=== PATIENT | male | born 1945 | race Caucasian/White ===

== ENCOUNTER 2018-09-11 06:17 | Day surgery (SDC) | payer MEDICARE ==
[2018-09-05 15:55] VITALS: BP 155/86
--- NOTE | 2018-09-05 16:18 | NUR ---
CALLED DR. RAJPUT TO REPORT EKG FINDING AND PT HAVING BLADDER STIMULATOR DEVICE PLACED. PER PATIENT HE WAS TOLD BY CORRINE PARISI THAT SPIKES ON EKG WERE DUE TO BLADDER STIMULATOR. PER DR. RAJPUT OK TO PROCEED.
--- NOTE | 2018-09-10 11:00 | NUR ---
PER DR. STEPHENS OK FOR PT TO CONTINUE TAKING HIS ELIQUIS, SEE MD HISTORY AND PHYSICAL. PT WAS TOLD ON DAY OF INTERVIEW
[2018-09-11] VITALS (11 sets, daily range): BP systolic 105–133; BP diastolic 60–81
[~2018-09-11] VITALS: Ht 180.3 cm; Wt 126.5 kg
[~2018-09-11 06:17] MED LIST: ALLO300T2 PO; AMLO5TAB9 PO; APIX5TAB PO; ATOR40TA71 PO; LACTATED RINGERS 1000ML 1,000 ML IV SCH; ROPI5TAB4 PO; VALS320T16 PO
[2018-09-11] MEDS ORDERED: PROPOFOL 10 MG/ML 20ML VIAL IV ONE (07:17)
[2018-09-11] MEDS ORDERED: FENTANYL CITRATE PF 50 MCG/1 ML 2ML VIAL ONE (07:17)
[2018-09-11] MEDS ORDERED: MIDAZOLAM HCL 1 MG/ML 2ML VIAL ONE (07:17)
[2018-09-11] MEDS ORDERED: LIDOCAINE HCL-MPF 1% 5ML AMP IJ ONE (07:17)
--- NOTE | 2018-09-11 07:25 | NUR ---
WHEEZING Sahil Lakhani CRNA notified of wheezing all lobes ,resp treatment ordered Addendum: 09/11/18 at 0744 by ROJELIO BALTAZAR RN RN Amended: Links added.
[2018-09-11] MEDS ORDERED: IPRATROPIUM/ALBUTEROL SULFATE 3 ML SOLUTION IH ONE (07:28)
[2018-09-11] MEDS ORDERED: EPHEDRINE SULFATE 50 MG/ML AMPULE ONE (08:01)
== END 2018-09-11 09:30 | disposition home or self-care (01) ==
LOC: DAH 06:17
PROVIDERS: ATTEND Orthopaedic Surgery
DX: T84.028A Dislocation of other internal joint prosthesis, initial encounter (principal); M24.411 Recurrent dislocation, right shoulder; Z88.0 Allergy status to penicillin
CPT/HCPCS: 23655; 73030; 93005; 94640; A4565; A4606; J2250; J2704; J3010; J3490 ×2; J7120

== ENCOUNTER 2018-11-26 11:00 | Inpatient (IN) | payer MEDICARE ==
[~2018-11-26] VITALS: Ht 179.1 cm; Wt 125.4 kg
[~2018-11-26 11:00] MED LIST changes: -AMLO5TAB9 PO; -LACTATED RINGERS 1000ML 1,000 ML IV SCH
[2018-11-26 12:29] LABS: EOSINOPHILS % (AUTO) 4.2 % (0.0-8.0); HEMATOCRIT 39.1 % (42-54); MEAN CORPUSCULAR HEMOGLOBIN 30.4 pg (27.0-33.0); MEAN CORPUSCULAR HGB CONC 33.1 g/dL (32.0-36.0); MONOCYTES % (AUTO) 7.8 % (3.0-13.0); PLATELET COUNT (AUTO) 221 K/uL (130-400); RED BLOOD CELL COUNT(AUTO) 4.25 MIL/uL (4.50-6.20); RED CELL DISTRIBUTION WIDTH 13.8 % (11.0-15.5); WHITE BLOOD COUNT (AUTO) 5.3 K/uL (4.8-10.8)
[2018-11-26 13:11] VITALS: BP 173/97
[2018-11-26] MEDS ORDERED: AMLO5TAB9 PO (14:08)
--- NOTE | 2018-11-26 16:25 | NUR ---
ekg abnormal ekg reported to dr. claudio. no further orders given, ok to proceed with sx
[2018-12-02] VITALS (24 sets, daily range): BP systolic 124–174; BP diastolic 68–97
[2018-12-02] MEDS ORDERED: CLINDAMYCIN 600 MG/D5% WATER 50 ML IV SCH (05:00)
[2018-12-02] MEDS ORDERED: LACTATED RINGERS 1000ML 1,000 ML IV ONE (06:09)
[2018-12-02] MEDS ORDERED: ROPIVACAINE 0.5% 5MG/ML 30ML IJ ONE (07:12)
[2018-12-02] MEDS ORDERED: TRANEXAMIC ACID 1000MG/10ML IV ONE (07:12)
[2018-12-02] MEDS ORDERED: PROPOFOL 10 MG/ML 20ML VIAL IV ONE (07:20)
[2018-12-02] MEDS ORDERED: MIDAZOLAM HCL 1 MG/ML 2ML VIAL ONE (07:20)
[2018-12-02] MEDS ORDERED: FENTANYL CITRATE PF 50 MCG/1 ML 5ML AMP IV ONE (07:20)
[2018-12-02] MEDS ORDERED: LIDOCAINE PF 2% 5ML ABBOJECT ONE (07:25)
[2018-12-02] MEDS ORDERED: ONDANSETRON HCL 4 MG/2 ML VIAL ONE (07:26)
[2018-12-02] MEDS ORDERED: ROCURONIUM 10MG/1ML SYR 10 MG/ML ML ONE ×2 (07:26→08:59)
[2018-12-02] MEDS ORDERED: DEXAMETHASONE SOD PHOSPHATE 10MG/ML 1ML VIAL ONE (07:26)
[2018-12-02] MEDS ORDERED: EPHEDRINE SULFATE 50 MG/ML AMPULE ONE (07:58)
[2018-12-02] MEDS ORDERED: CLINDAMYCIN PHOSPHATE 150 MG/ML 6ML VIAL ONE (08:19)
[2018-12-02] MEDS ORDERED: GLYCOPYRROLATE 1 MG/5 ML SYRINGE ONE (09:12)
[2018-12-02] MEDS ORDERED: NEOSTIGMINE 5MG/5ML SYR IV ONE (09:12)
[2018-12-02] MEDS ORDERED: KETOROLAC TROMETHAMINE 30MG/ML ONE (09:26)
[2018-12-02] MEDS: SODIUM CHLORIDE 0.9% 1000ML 1,000 ML IV SCH ×2 (09:31→19:56)
[2018-12-02] MEDS ORDERED: FENTANYL CITRATE PF 50 MCG/1 ML 2ML VIAL ONE (09:35)
[2018-12-02] MEDS ORDERED: POTASSIUM CHLORIDE 20 MEQ ERTAB PO PRN (09:45)
[2018-12-02] MEDS ORDERED: OXYCODONE HCL 5 MG TAB PO PRN ×2 (09:45)
[2018-12-02] MEDS ORDERED: POTASSIUM CHLORIDE 10% ELIXIR 20 MEQ/15 ML UDCUP PO PRN (09:45)
[2018-12-02] MEDS ORDERED: MORPHINE SULFATE 4 MG/1ML SYG IVP PRN (09:45)
[2018-12-02] MEDS: ACETAMINOPHEN EXTRA STRENGTH 500 MG TABLET PO SCH ×2 (09:45→16:43)
[2018-12-02] MEDS ORDERED: LIDOCAINE HCL-MPF 1% 2ML VIAL IJ PRN (09:45)
[2018-12-02] MEDS ORDERED: ONDANSETRON HCL 4 MG/2 ML VIAL IVP PRN ×2 (09:45→13:15)
[2018-12-02] MEDS ORDERED: POTASSIUM CHLORIDE 20MEQ/100ML 100 ML IV PRN (09:45)
--- NOTE | 2018-12-02 12:09 | NUR ---
DR. ALDANA AWARE OF NEW CONSULT
[2018-12-02] MEDS ORDERED: HYDRALAZINE HCL 20 MG/ML VIAL IV PRN (13:15)
--- NOTE | 2018-12-02 14:31 | NUR ---
CM Note: [facility] pending approval and acceptance Faxed order, clinicals to [facility], confirmation received. Denzel Yun RNCM to f/u w/[facility]. Pt pending approval and acceptance. Primary nurse aware. CM to cont to follow up.
[2018-12-02 14:47] LABS: CREATININE 1.1 mg/dL (0.5-1.5)
--- NOTE | 2018-12-02 15:00 | NUR ---
INITIAL AND REFERRAL MET W PT AND SPOUSE STATUS [facility] TODAY. PT AAOX3, INDP OF ADLS, USES NO DME, HAS 2 STEPS UP TO HOUSE, DRIVES, LIVES W SPOUSE PATRICIA MAYA WHO IS ACTIVE AND ABLE TO PROVIDE CARE AND TRANSPORT. ORDER FOR DC PLANNING- PT/SPOSUE WANT [facility], HAVE HAD BEFORE, CALL TO DR. STEPHENS OFFICE, VERIFIED NO OTHER HOME HEALTH HAD BEEN SET UP FOR PATIENT, MAHESH/CONSENT/ REFERRAL SENT TO [facility], CALL BACK RECD THAT PT WAS ACCEPTED. CHART TAGGED, PRIMARY RN AWARE. Addendum: 12/03/18 at 0817 by NORMAN JOYCE RN Amended: Links added.
--- NOTE | 2018-12-02 15:56 | NUR ---
NICOLE FROM LAB CALLED, STATING SHE DID NOT HAVE ANY SPECIMENTS FROM BOD[employer] FLUID I CALLED, LORRAINE , MADE HER AWARE AND GAVE HER LABX EXT.
[2018-12-02] MEDS: CLINDAMYCIN 900 MG/D5% WATER 50 ML IV SCH (16:43)
[2018-12-02] MEDS: APIXABAN 5 MG TABLET PO SCH (20:01)
[2018-12-02] MEDS: FAMOTIDINE 20MG TAB 20 MG TAB PO SCH (20:01)
[2018-12-02] MEDS ORDERED: ALLOPURINOL 300 MG TABLET PO SCH (21:00)
[2018-12-02] MEDS ORDERED: ROPINIROLE HCL 5 MG TABLET PO SCH (21:00)
[2018-12-02] MEDS ORDERED: ATORVASTATIN CALCIUM 40 MG TABLET PO SCH (21:00)
[2018-12-03] MEDS: CLINDAMYCIN 900 MG/D5% WATER 50 ML IV SCH (01:19)
[2018-12-03] MEDS: ACETAMINOPHEN EXTRA STRENGTH 500 MG TABLET PO SCH ×2 (01:45→10:00)
[2018-12-03 03:00] VITALS: BP 132/82
[2018-12-03] MEDS: SODIUM CHLORIDE 0.9% 1000ML 1,000 ML IV SCH (04:38)
[2018-12-03 04:55] LABS: HEMATOCRIT 34.2 % (42-54); MEAN CORPUSCULAR HEMOGLOBIN 30.8 pg (27.0-33.0); MEAN CORPUSCULAR HGB CONC 34.2 g/dL (32.0-36.0); PLATELET COUNT (AUTO) 193 K/uL (130-400); RED CELL DISTRIBUTION WIDTH 13.7 % (11.0-15.5); WHITE BLOOD COUNT (AUTO) 6.7 K/uL (4.8-10.8)
[2018-12-03 05:08] LABS: POTASSIUM 4.3 mmol/L (3.5-5.1)
[2018-12-03] MEDS ORDERED: OXYCODONE HCL 10 MG TAB.SR.12H PO ONE (05:31)
[2018-12-03 07:54] VITALS: BP 117/81
[2018-12-03] MEDS: FAMOTIDINE 20MG TAB 20 MG TAB PO SCH (08:57)
[2018-12-03] MEDS: APIXABAN 5 MG TABLET PO SCH (08:57)
[2018-12-03] MEDS ORDERED: POLYETHYLENE GLYCOL 3350 17 GM POWD.PACK PO SCH (09:00)
[2018-12-03] MEDS ORDERED: LOSARTAN 100 MG TABLET PO SCH (09:00)
[2018-12-03] MEDS ORDERED: AMLODIPINE BESYLATE 5 MG TAB PO SCH (09:00)
[2018-12-03 11:15] VITALS: BP 127/75
[2018-12-03 15:35] VITALS: BP 126/78
--- NOTE | 2018-12-03 17:40 | NUR ---
REPORT TELEPHONE REPORT GIVEN TO VINI MONCADA WITH [facility]. PATIENT WILL BE SEEN TOMORROW BY THE NURSE.
--- NOTE | 2018-12-03 18:40 | NUR ---
INSTRUCTIONS DISCHARGE INSTRUCTIONS GIVEN TO PATIENT AND SPOUSE USING TEACH BACK. IV HAS BEEN REMOVED WITH TIP INTACT. DIRECT PRESSURE APPLIED UNTIL BLEEDING CONTROLLED THEN SITE COVERED WITH GAUZE AND SECURED WITH TAPE. DRESSING TO THE RIGHT SHOULDER CHANGED PER MD ORDER. PATIENT TOLERATED PROCEDURE WELL. SLING IS IN PLACE. F/U APPOINTMENT WILL BE CALLED IN TO PATIENT BY DR. URIARTE'S OFFICE. NEW PRESCRIPTIONS PLACED IN PACKET ALONG WITH ALL PRINTED INFORMATION AND MD INSTRUCTIONS. PENDING RIDE HOME.
[2018-12-05] MEDS ORDERED: BISACODYL 10 MG SUPP.RECT RC PRN (09:45)
== END 2018-12-03 18:41 | disposition home health service (06) | DRG 483 ==
LOC: EDSTATUS 11:00 → DAHIP 12-02 05:50 → 4AH 12-02 09:41
PROVIDERS: ADMIT Orthopaedic Surgery; ATTEND Orthopaedic Surgery
PROC: 0RRJ0J6 Replacement of Right Shoulder Joint with Synthetic Substitute, Humeral Surface, Open Approach (ICD-10-PCS; principal; 2018-12-02 07:35)
PROC: 0RPJ0JZ Removal of Synthetic Substitute from Right Shoulder Joint, Open Approach (ICD-10-PCS; 2018-12-02 07:35)
DX: T84.028A Dislocation of other internal joint prosthesis, initial encounter (principal); E66.01 Morbid (severe) obesity due to excess calories; Z68.39 Body mass index [BMI] 39.0-39.9, adult; I10 Essential (primary) hypertension; J45.909 Unspecified asthma, uncomplicated; Z79.01 Long term (current) use of anticoagulants; Z86.718 Personal history of other venous thrombosis and embolism; Z96.611 Presence of right artificial shoulder joint; Y92.89 Other specified places as the place of occurrence of the external cause; Y79.2 Prosthetic and other implants, materials and accessory orthopedic devices associated with adverse incidents; Z88.0 Allergy status to penicillin; Z83.3 Family history of diabetes mellitus; Z82.49 Family history of ischemic heart disease and other diseases of the circulatory system
CPT/HCPCS: 36415; 73020; 80048; 85025; 85027; 86850; 86900; 86901; 87070; 87076; 87641; 88300; 93005; G0378; J1100; J1885; J2001; J2250; J2270; J2405; J2704; J2710; J2795; J3010; J3490; J7120